=== PATIENT | female | born 1970 | race Caucasian/White ===

== ENCOUNTER 2017-07-11 16:22 | Inpatient (IN) | payer OTHER ==
[2017-07-11 16:22] VITALS: BMI 26.3
[2017-07-11] MEDS ORDERED: Sodium Chloride 0.9% 1,000 ML IV STA (17:02)
--- NOTE | 2017-07-11 17:02 | ED PDOC ---
HPI: General Adult Time Seen by Provider: 07/11/17 16:35 Chief Complaint (Nursing): Palpitations Chief Complaint (Provider): PALPITATIONS History Per: Patient History/Exam Limitations: no limitations Onset/Duration Of Symptoms: Days (Wednesday) Additional Complaint(s): Pt. with palpitations off and on since Wed. Today more constant so came to the ER. Has no chest pain, dyspnea, dizziness, weakness, leg pain, abd pain. No new food or drugs. No etoh. Has palpitations in the past and gets toprol. No dx for it. Cards: Dr. Russell; PCP: Dr. Rivera. Past Medical History Reviewed: Nursing Documentation, Vital Signs Vital Signs: Last Vital Signs Temp 98.2 F 07/11/17 16:24 Pulse 73 07/11/17 17:03 Resp 20 07/11/17 16:24 BP 165/89 H 07/11/17 16:50 Pulse Ox 100 07/11/17 17:51 - Medical History PMH: Asthma (sees Dr Rivera), CHF, HTN, Hypercholesterolemia Denies: Chronic Kidney Disease Other PMH: palpitations - Surgical History Other surgeries: heart surgery for genetic dz - Family History Family History: States: Unknown Family Hx - Living Arrangements Living Arrangements: With Family - Social History Current smoker - smoking cessation education provided: No Alcohol: None Drugs: Denies - Home Medications Home Medications: Ambulatory Orders Medication Instructions Recorded Lisinopril 20 mg PO DAILY 09/04/14 Metoprolol Succinate [Toprol XL] 100 mg PO DAILY 09/04/14 Simvastatin 20 mg PO DAILY 09/04/14 Cholecalciferol [Vitamin D] 1,000 iu PO 07/11/17 - Allergies Allergies/Adverse Reactions: Allergies Allergy/AdvReac Type Severity Reaction Status Date / Time No Known Allergies Allergy Verified 09/23/15 11:57 Review of Systems ROS Statement: Except As Marked, All Systems Reviewed And Found Negative Cardiovascular: Positive for: Palpitations Physical Exam - Reviewed Nursing Documentation Reviewed: Yes Vital Signs Reviewed: Yes - Physical Exam Appears: Positive for: Non-toxic, No Acute Distress Head Exam: Positive for: ATRAUMATIC, NORMAL INSPECTION, NORMOCEPHALIC Skin: Positive for: Normal Color, Warm, DRY Eye Exam: Positive for: EOMI, Normal appearance, PERRL ENT: Positive for: Normal ENT Inspection Neck: Positive for: Normal, Painless ROM Cardiovascular/Chest: Positive for: Tachycardia Respiratory: Positive for: CNT, Normal Breath Sounds Gastrointestinal/Abdominal: Positive for: Normal Exam, Bowel Sounds, Soft. Negative for: Tenderness Back: Positive for: Normal Inspection. Negative for: L CVA Tenderness, R CVA Tenderness Extremity: Positive for: Normal ROM. Negative for: Tenderness, Pedal Edema Neurologic/Psych: Positive for: Alert, Oriented. Negative for: Motor/Sensory Deficits - Laboratory Results Result Diagrams: 07/11/17 17:11 07/11/17 17:11 Interpretation Of Abn Labs: 38/1.3 - ECG ECG: Positive for: Interpreted By Me, Viewed By Me ECG Rhythm: Positive for: Atrial Flutter Interpretation Of ECG: post cardizem Rate controlled afib/flutter O2 Sat by Pulse Oximetry: 100 Pulse Ox Interpretation: Normal - Progress ED Course And Treament: 1759: Stable. Spoke with Dr. Rivera. Will admit. Spoke with Dr. Russell. Well known to him. Wants 40 sc lovenox for prophylaxis, 50mg metoprolol. No palpitations and feels better. - Critical Care Total Time (In Min): 30 Documented Critical Care: Time excludes all time spent performint seperately billable procedures Disposition - Clinical Impression Clinical Impression: Atrial fibrillation and flutter - Patient ED Disposition Is Patient to be Admitted: Yes Counseled Patient/Family Regarding: Studies Performed, Diagnosis - Disposition Disposition Time: 18:01 Condition: FAIR - Pt Status Changed To: Hospital Disposition Of: Observation - POA Present On Arrival: None
[2017-07-11 17:14] LABS: BASO # 0.1 K/uL (0.0-0.2); EOS # 0.2 K/uL (0.0-0.7); EOS % 1.9 % (0.0-4.0); LYMPH # 3.8 K/uL (1.0-4.3); LYMPH % 40.9 % (20.0-40.0); MEAN CELL VOLUME 92.3 fl (81.0-99.0); MEAN CORPUSCULAR HEMOGLOBIN 30.7 pg (27.0-31.0); MEAN CORPUSCULAR HGB CONC 33.3 g/dL (33.0-37.0); MONO # 0.8 K/uL (0.0-0.8); MONO % 8.4 % (0.0-10.0); NEUT # 4.5 K/uL (1.8-7.0); NEUT % 47.8 % (50.0-75.0); NRBC % 0.1 % (0.0-0.0); RBC 4.25 Mil/uL (3.80-5.20); RED CELL DISTRIBUTION WIDTH 12.7 % (11.5-14.5); WHITE BLOOD COUNT 9.3 K/uL (4.8-10.8)
[2017-07-11 17:39] LABS: INR 0.9 (0.9-1.2); PARTIAL THROMBOPLASTIN TIME 32.1 Seconds (25.6-37.1)
[2017-07-11 17:42] LABS: ALB/GLOB RATIO 1.2 (1.0-2.1); ALBUMIN 4.4 g/dL (3.5-5.0); ALT/SGPT 34 U/L (9-52); AST/SGOT 27 U/L (14-36); BLOOD UREA NITROGEN 38 mg/dl (7-17); GFR AFRICAN-AMERICAN 54; GFR NON-AFRICAN AMERICAN 44; MAGNESIUM 1.9 MG/DL (1.6-2.3)
[2017-07-11] MEDS ORDERED: Enoxaparin 60 mg Syringe SC STA (17:52)
[2017-07-11] MEDS ORDERED: Enoxaparin 40 mg Syringe SC STA (17:52)
[2017-07-12 07:17] LABS: BLOOD UREA NITROGEN 27 mg/dl (7-17); CALCIUM 9.5 mg/dL (8.4-10.2); GFR AFRICAN-AMERICAN > 60; GFR NON-AFRICAN AMERICAN > 60; HDL CHOLESTEROL 27 MG/DL (30-70)
[2017-07-12 07:26] LABS: LDL CHOLESTEROL 103 mg/dL (0-129)
[2017-07-12 07:32] LABS: T4 5.61 ug/dl (5.5-11.0)
[2017-07-12] MEDS: Cholecalciferol 1,000 INTLU TAB PO SCH (08:43)
[2017-07-12] MEDS: Enoxaparin 40 mg Syringe SC SCH (08:44)
[2017-07-12] MEDS ORDERED: Cholecalciferol 1,000 INTLU TAB PO SCH (09:00)
[2017-07-12] MEDS ORDERED: Metoprolol Succinate 50 mg XL Tab PO SCH ×2 (09:00)
[2017-07-12] MEDS ORDERED: Patient's Own Med (Simvastatin [Simvastatin] 20 MG) PO SCH (09:00)
[2017-07-12] MEDS ORDERED: Metoprolol 1 mg/ml Inj IVP ONE ×2 (09:27→12:40)
--- NOTE | 2017-07-12 09:39 | CP.PCM.CON ---
History of Present Illness - History of Present Illness History of Present Illness: This 46-year-old female came into the emergency room complaining of constant palpitations which had lasted a day and a half before she called me. Recommendations she came to the emergency room and was found to have atrial flutter. Initially her heart rate exceeded 140 bpm following intravenous Cardizem her heart rate was mostly between 60 and 80 bpm with clear evidence of atrial flutter with 4-1 AV conduction. The patient has a long medical history which consists of having required cardiac surgery at the age of 7 years for total anamalous pulmonary venous drainage. She is a long-standing hypertensive and diabetic who has had an insulin pump installed more than 3 years back. The patient was found to be hyperthyroid and has been taking Tapazole 5 mg daily for more than 2 years. According to her her last TSH level 6 months back was normal. She has never been a smoker and has never suffered a myocardial infarction or congestive cardiac failure. A nuclear stress test done in 2014 prior to undergoing a total hysterectomy did not show any evidence of coronary artery disease. The patient has complained of palpitations off and on which have usually responded to taking beta-blockade by mouth. Atrial flutter or fibrillation had never been documented before. The patient has not been on any oral anticoagulation. Physical examination shows an anxious female who was able to lie virtually flat and carry on a conversation without any difficulty. Her heart rate was 130 bpm with persistent atrial flutter with 3 to one conduction. Her blood pressure was 114/70 mmHg. Her jugular venous pressure was not elevated and there was no edema over lower extremities. The pedal pulses are well felt. There were no carotid bruits. A scar of sternotomy was evident on the chest. The first and second heart sounds are normal. There was no murmur or gallop. There were no rales. Her electro-cardiogram again showed atrial flutter with 4-1 conduction and a pattern suggestive of right ventricular preponderance. Her lab data showed a normal thyroid profile and her BUN and creatinine as well as electrolytes were normal. Her CBC was noted. 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 The patient will receive intravenous beta-blockade to control her heart rate followed by oral beta blockade. Given the fact that she is a hypertensive as well as diabetic and a female she will require long-term oral anticoagulation. I will discuss possible ablation procedure to avoid long-term oral anticoagulation. Past Patient History - Past Medical History & Family History Past Medical History?: Yes - Past Social History Alcohol: None Drugs: Denies - CARDIAC Hx Congestive Heart Failure: Yes Hx Hypercholesterolemia: Yes Hx Hypertension: Yes - PULMONARY Hx Asthma: Yes (sees Dr Rivera) - NEUROLOGICAL Hx Neurological Disorder: No - HEENT Hx HEENT Problems: No - RENAL Hx Chronic Kidney Disease: No - ENDOCRINE/METABOLIC Hx Endocrine Disorders: Yes Hx Diabetes Mellitus Type 1: Yes (DM since chil, on insulin pump) - HEMATOLOGICAL/ONCOLOGICAL Hx Blood Disorders: Yes Hx Blood Transfusions: Yes (Had BT secondary to bleeding) Hx Blood Transfusion Reaction: No - INTEGUMENTARY Hx Dermatological Problems: No - MUSCULOSKELETAL/RHEUMATOLOGICAL Hx Musculoskeletal Disorders: No - GASTROINTESTINAL Hx Gastrointestinal Disorders: No - GENITOURINARY/GYNECOLOGICAL Hx Genitourinary Disorders: No - PSYCHIATRIC Hx Emotional Abuse: No Hx Physical Abuse: No Hx Substance Use: No - SURGICAL HISTORY Hx Surgeries: Yes (heart surgery and D/C) Hx Cardiac Catheterization: Yes (age 17) Hx Dilation and Curettage: Yes (2013) 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) Other/Comment: Right hand trigger finger 2010 - ANESTHESIA Hx Anesthesia: Yes Hx Anesthesia Reactions: No Hx Malignant Hyperthermia: No Meds Allergies/Adverse Reactions: Allergies Allergy/AdvReac Type Severity Reaction Status Date / Time No Known Allergies Allergy Verified 09/23/15 11:57 - Medications Medications: Current Medications Aspirin (Aspirin Chewable) 81 mg PO DAILY [facility] Last Admin: 07/12/17 08:41 Dose: 81 mg Atorvastatin Calcium (Lipitor) 10 mg PO DAILY [facility] Last Admin: 07/12/17 08:41 Dose: 10 mg Cholecalciferol (Vitamin D) 1,000 intlu PO DAILY [facility] Last Admin: 07/12/17 08:43 Dose: 1,000 intlu Cholecalciferol (Vitamin D) 1,000 intlu PO DAILY [facility] Enoxaparin Sodium (Lovenox) 40 mg SC DAILY [facility] PRN Reason: Protocol Last Admin: 07/12/17 08:44 Dose: 40 mg Metoprolol Tartrate (Lopressor) 2 mg IVP ONCE ONE Stop: 02/05/18 09:28 Metoprolol Tartrate (Lopressor) 100 mg PO Q12 [facility]THA Results - Vital Signs Recent Vital Signs: Last Vital Signs Temp 98.3 F 07/11/17 19:56 Pulse 129 H 07/12/17 08:42 Resp 20 07/11/17 20:36 BP 119/60 07/12/17 08:42 Pulse Ox 96 07/12/17 04:57 - Labs Result Diagrams: 07/11/17 17:11 07/12/17 04:00 Labs: Laboratory Results - last 24 hr 07/11/17 07/11/17 07/11/17 17:11 17:11 17:11 WBC 9.3 RBC 4.25 Hgb 13.0 Hct 39.2 MCV 92.3 D MCH 30.7 MCHC 33.3 RDW 12.7 Plt Count 237 MPV 10.0 Neut % (Auto) 47.8 L Lymph % (Auto) 40.9 H [place] % (Auto) 8.4 Eos % (Auto) 1.9 Baso % (Auto) 1.0 Neut # (Auto) 4.5 Lymph # (Auto) 3.8 [place] # (Auto) 0.8 Eos # (Auto) 0.2 Baso # (Auto) 0.1 PT 10.0 INR 0.9 APTT 32.1 Sodium 141 Potassium 4.3 Chloride 100 Carbon Dioxide 28 Anion Gap 17 BUN 38 H Creatinine 1.3 H Est GFR ( Amer) 54 Est GFR (Non-Af Amer) 44 Random Glucose 174 H Calcium 10.0 Phosphorus 4.1 Magnesium 1.9 Total Bilirubin 0.4 AST 27 ALT 34 Alkaline Phosphatase 91 Troponin I < 0.0120 Total Protein 8.2 Albumin 4.4 Globulin 3.8 Albumin/Globulin Ratio 1.2 Triglycerides Cholesterol LDL Cholesterol Direct HDL Cholesterol Thyroxine (T4) TSH 3rd Generation 07/12/17 04:00 WBC RBC Hgb Hct MCV MCH MCHC RDW Plt Count MPV Neut % (Auto) Lymph % (Auto) [place] % (Auto) Eos % (Auto) Baso % (Auto) Neut # (Auto) Lymph # (Auto) [place] # (Auto) Eos # (Auto) Baso # (Auto) PT INR APTT Sodium 141 Potassium 4.1 Chloride 105 Carbon Dioxide 27 Anion Gap 13 BUN 27 H Creatinine 0.8 Est GFR ( Amer) > 60 Est GFR (Non-Af Amer) > 60 Random Glucose 126 H Calcium 9.5 Phosphorus Magnesium Total Bilirubin AST ALT Alkaline Phosphatase Troponin I Total Protein Albumin Globulin Albumin/Globulin Ratio Triglycerides 456 H D Cholesterol 196 LDL Cholesterol Direct 103 HDL Cholesterol 27 L Thyroxine (T4) 5.61 TSH 3rd Generation 3.32
[2017-07-12 09:41] LABS: BASO # 0.1 K/uL (0.0-0.2); BASO % 0.7 % (0.0-2.0); EOS # 0.2 K/uL (0.0-0.7); EOS % 2.4 % (0.0-4.0); HEMOGLOBIN 12.2 g/dL (12.0-16.0); LYMPH # 3.1 K/uL (1.0-4.3); LYMPH % 40.8 % (20.0-40.0); MEAN CELL VOLUME 91.6 fl (81.0-99.0); MEAN CORPUSCULAR HEMOGLOBIN 30.8 pg (27.0-31.0); MEAN CORPUSCULAR HGB CONC 33.6 g/dL (33.0-37.0); MEAN PLATELET VOLUME 10.1 fl (7.2-11.7); MONO # 0.6 K/uL (0.0-0.8); MONO % 7.8 % (0.0-10.0); NEUT # 3.6 K/uL (1.8-7.0); NEUT % 48.3 % (50.0-75.0); NRBC % 0.1 % (0.0-0.0); RBC 3.96 Mil/uL (3.80-5.20); RED CELL DISTRIBUTION WIDTH 12.8 % (11.5-14.5); WHITE BLOOD COUNT 7.5 K/uL (4.8-10.8)
--- NOTE | 2017-07-12 10:47 | RAD ---
PROCEDURE: CHEST RADIOGRAPH, 1 VIEW HISTORY: CHEST PAIN COMPARISON: None available. FINDINGS: LUNGS: Mild bibasilar atelectasis left greater than right. PLEURA: No pneumothorax or pleural fluid seen. CARDIOVASCULAR: Re- demonstrated are sternotomy wires. Heart size is upper limits of normal. OSSEOUS STRUCTURES: No significant abnormalities. VISUALIZED UPPER ABDOMEN: Normal. OTHER FINDINGS: None. IMPRESSION: Mild bibasilar atelectasis left greater than right.
--- NOTE | 2017-07-12 11:21 | HP ---
HISTORY OF PRESENT ILLNESS: Ms. Manrique is a 46-year-old female who was admitted via the Emergency Room because of palpitations for 3 days prior to presentation. She denies chest pain, dizziness or shortness of breath. She indicated that palpitations has started on . She, therefore, came to the Emergency Room for evaluation and was found to have atrial flutter/fibrillation and was given IV Cardizem, persisted, but rate dropped to about 90 per minute but then went to back to 140. She received another dose of IV Cardizem and heart rate dropped again to 90s, but I saw this morning it is back to 140. PAST MEDICAL HISTORY: She has past medical history of hypertension, hyperthyroidism, hyperlipidemia, diabetes mellitus, glaucoma status post eye surgery and status post childhood cardiac surgery. FAMILY HISTORY: Non-revealing. SOCIAL HISTORY: She does not smoke or drink and does not use drugs. 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 PHYSICAL EXAMINATION: GENERAL: The patient is alert and oriented, appears to be still having palpitations. VITAL SIGNS: Remarkable for blood pressure of 119/60 with pulse of 129 to 140 per minute, O2 sat 96% on room air, and respiratory rate of 18 per minute. SKIN: Shows fair turgor. HEENT: Pupils equal and reactive to light and accommodation. Scars of prior surgery noted on the right eye. JVP flat. Mouth shows fair hygiene. LUNGS: Clear. HEART: Tachycardiac. Scar of prior surgery noted on the anterior chest wall. BREASTS: Normal. ABDOMEN: Soft and nontender. No organomegaly. EXTREMITIES: Shows no edema or cyanosis. CENTRAL NERVOUS SYSTEM: Grossly intact. LABORATORY DATA: Revealed EKG is remarkable for atrial flutter with 4:[address] conduction[address] Non-specific ST-T abnormalities. Chest x-ray is pending. IMPRESSION: Cardiac arrhythmias, history of childhood cardiac surgery, hyperthyroidism, diabetes mellitus type 2, hyperlipidemia, glaucoma, and asthma by history. PLAN: Continue antiarrhythmic therapy, cardiac evaluation. Obtain echocardiogram, serial troponin. Continue therapy as ordered. Further therapy will depend on Cardiology. Blas Rivera MD [facility] # [id number] MTDD
--- NOTE | 2017-07-12 12:23 | CARD ---
APPROVED REPORT EKG Measurement Heart [id number] <Conclusion> Atrial flutter with 4:[address] abnormality Abnormal ECG
--- NOTE | 2017-07-12 12:24 | CARD ---
APPROVED REPORT EKG Measurement Heart [id number] <Conclusion> Atrial flutter with 2:[address] and T wave abnormality Abnormal ECG
[2017-07-13] MEDS: Enoxaparin 40 mg Syringe SC SCH (08:45)
[2017-07-13] MEDS: Cholecalciferol 1,000 INTLU TAB PO SCH (08:46)
--- NOTE | 2017-07-13 08:46 | CARD ---
APPROVED REPORT EKG Measurement Heart [id number] <Conclusion> Atrial flutter with variable AV block Nonspecific T wave abnormality Abnormal ECG
[2017-07-13 08:47] VITALS: RESP 18
--- NOTE | 2017-07-13 09:53 | CP.PCM.DIS ---
Provider - Provider Date of Admission: 07/12/17 18:01 Attending physician: Blas Boswell MD Time Spent in preparation of Discharge (in minutes): 35 Diagnosis - Discharge Diagnosis (1) Hyperthyroidism Status: Acute (2) Mixed hyperlipidemia Status: Acute (3) Atrial fibrillation and flutter Status: Acute (4) Diabetes Status: Chronic (5) Heart disease Status: Chronic Hospital Course - Lab Results Lab Results: Most Recent Lab Values WBC 7.5 K/uL (4.8-10.8) 07/12/17 09:30 RBC 3.96 Mil/uL (3.80-5.20) 07/12/17 09:30 Hgb 12.2 g/dL (12.0-16.0) 07/12/17 09:30 Hct 36.3 % (34.0-47.0) 07/12/17 09:30 MCV 91.6 fl (81.0-99.0) 07/12/17 09:30 MCH 30.8 pg (27.0-31.0) 07/12/17 09:30 MCHC 33.6 g/dL (33.0-37.0) 07/12/17 09:30 RDW 12.8 % (11.5-14.5) 07/12/17 09:30 Plt Count 209 K/uL (130-400) 07/12/17 09:30 MPV 10.1 fl (7.2-11.7) 07/12/17 09:30 Neut % (Auto) 48.3 % (50.0-75.0) L 07/12/17 09:30 Lymph % (Auto) 40.8 % (20.0-40.0) H 07/12/17 09:30 [place] % (Auto) 7.8 % (0.0-10.0) 07/12/17 09:30 Eos % (Auto) 2.4 % (0.0-4.0) 07/12/17 09:30 Baso % (Auto) 0.7 % (0.0-2.0) 07/12/17 09:30 Neut # (Auto) 3.6 K/uL (1.8-7.0) 07/12/17 09:30 Lymph # (Auto) 3.1 K/uL (1.0-4.3) 07/12/17 09:30 [place] # (Auto) 0.6 K/uL (0.0-0.8) 07/12/17 09:30 Eos # (Auto) 0.2 K/uL (0.0-0.7) 07/12/17 09:30 Baso # (Auto) 0.1 K/uL (0.0-0.2) 07/12/17 09:30 PT 10.0 Seconds (9.8-13.1) 07/11/17 17:11 INR 0.9 (0.9-1.2) 07/11/17 17:11 APTT 32.1 Seconds (25.6-37.1) 07/11/17 17:11 Sodium 141 mmol/l (132-148) 07/12/17 04:00 Potassium 4.1 MMOL/L (3.6-5.0) 07/12/17 04:00 Chloride 105 mmol/L (98-107) 07/12/17 04:00 Carbon Dioxide 27 mmol/L (22-30) 07/12/17 04:00 Anion Gap 13 (10-20) 07/12/17 04:00 BUN 27 mg/dl (7-17) H 07/12/17 04:00 Creatinine 0.8 mg/dl (0.7-1.2) 07/12/17 04:00 Est GFR ( Amer) > 60 07/12/17 04:00 Est GFR (Non-Af Amer) > 60 07/12/17 04:00 Random Glucose 126 mg/dL (65-105) H 07/12/17 04:00 Calcium 9.5 mg/dL (8.4-10.2) 07/12/17 04:00 Phosphorus 4.1 mg/dl (2.5-4.5) 07/11/17 17:11 Magnesium 1.9 MG/DL (1.6-2.3) 07/11/17 17:11 Total Bilirubin 0.4 mg/dl (0.2-1.3) 07/11/17 17:11 AST 27 U/L (14-36) 07/11/17 17:11 ALT 34 U/L (9-52) 07/11/17 17:11 Alkaline Phosphatase 91 U/L (38-126) 07/11/17 17:11 Troponin I < 0.0120 ng/mL (0.00-0.120) 07/12/17 08:55 Total Protein 8.2 G/DL (6.3-8.2) 07/11/17 17:11 Albumin 4.4 g/dL (3.5-5.0) 07/11/17 17:11 Globulin 3.8 gm/dL (2.2-3.9) 07/11/17 17:11 Albumin/Globulin Ratio 1.2 (1.0-2.1) 07/11/17 17:11 Triglycerides 456 mg/DL (0-149) H D 07/12/17 04:00 Cholesterol 196 mg/dL (0-199) 07/12/17 04:00 LDL Cholesterol Direct 103 mg/dL (0-129) 07/12/17 04:00 HDL Cholesterol 27 MG/DL (30-70) L 07/12/17 04:00 Thyroxine (T4) 5.61 ug/dl (5.5-11.0) 07/12/17 04:00 TSH 3rd Generation 3.32 mIU/ML (0.46-4.68) 07/12/17 04:00 - Hospital Course Hospital Course: feels better no recurrence of palpitations [id number]/min Discharge Exam - Head Exam Head Exam: ATRAUMATIC, NORMAL INSPECTION, NORMOCEPHALIC - Eye Exam Eye Exam: EOMI, Normal appearance, PERRL Pupil Exam: NORMAL ACCOMODATION, PERRL - GI/Abdominal Exam GI & Abdominal Exam: Normal Bowel Sounds - Rectal Exam Rectal Exam: NORMAL INSPECTION - Neurological Exam Neurological exam: Alert, CN II-XII Intact, Normal Gait, Oriented x3, Reflexes Normal - Psychiatric Exam Psychiatric exam: Normal Affect, Normal Mood - Skin Skin Exam: Dry, Intact, Normal Color, Warm Discharge Plan - Follow Up Plan Condition: FAIR Disposition: HOME/ ROUTINE Patient education suggested?: Yes Additional Instructions: discharge on lopressor 100 mg bid and eliquis 15 mg bid follow up with caitie boswell and rogerio case discussed with repair specialist--dr mitchellomeres
[2017-07-13] MEDS ORDERED: methIMAzole 5 MG TAB PO SCH (10:00)
[2017-07-13 16:11] VITALS: BP 108/64; PULSE 79; TEMP 97.7; O2SAT 97
== END 2017-07-13 16:15 | disposition home or self-care (01) | DRG 310 ==
LOC: H.ER 16:22 → H.ERHOLD 18:01 → H.TEL 07-12 17:46 → OBSVTOIN 07-12 18:01
PROVIDERS: ADMIT Internal Medicine Pulmonary Disease; ATTEND Internal Medicine Pulmonary Disease
DX: I48.1 Persistent atrial fibrillation (principal); E05.90 Thyrotoxicosis, unspecified without thyrotoxic crisis or storm; E78.2 Mixed hyperlipidemia; I48.92 Unspecified atrial flutter; I10 Essential (primary) hypertension; E10.9 Type 1 diabetes mellitus without complications; J45.909 Unspecified asthma, uncomplicated; Z96.41 Presence of insulin pump (external) (internal); Z79.4 Long term (current) use of insulin

== ENCOUNTER 2018-10-20 15:23 | Emergency (ER) | payer OTHER ==
[2018-10-20 15:23] VITALS: BMI 26.3
[2018-10-20 16:14] VITALS: TEMP 98.4
--- NOTE | 2018-10-20 16:35 | ED PDOC ---
Lower Extremity Pain/Injury Time Seen by Provider: 10/20/18 16:16 Chief Complaint (Nursing): Lower Extremity Problem/Injury Chief Complaint (Provider): Lower Extremity Problem/Injury History Per: Patient History/Exam Limitations: no limitations Onset/Duration Of Symptoms: Hrs (since earlier this morning) Current Symptoms Are (Timing): Still Present Additional Complaint(s): 48 y/o female with a PMHx of Type 1 DM presents to the ED for evaluation of atraumatic left ankle pain. 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 Patient reports symptoms started this morning and are unrelieved after taking Motrin 600 mg. Patient notes of last taking Motrin at 10:15AM this morning. Patient states she is unable to twist her left ankle inward or outward secondary to pain. Patient notes symptoms worsen with standing. Patient reports pain is non-radiating and confined to the ankle. Otherwise: (-) recent falls, (-) previous ankle injury or surgery, (-) loss of sensation, (-) calf tenderness, (- ) shortness of breath/cough, (-) recent fever and any other complaints. PMD: Blas Fajardo I Past Medical History Reviewed: Historical Data, Nursing Documentation, Vital Signs Vital Signs: Last Vital Signs Temp 98.4 F 10/20/18 16:14 Pulse 79 10/20/18 16:14 Resp 16 10/20/18 16:14 BP 119/57 L 10/20/18 16:14 Pulse Ox 97 10/20/18 16:14 Primary Care Provider: Blas Rivera I - Medical History PMH: Asthma (sees Dr Rivera), CHF, Diabetes (Type I), HTN, Hypercholesterolemia - Surgical History Other surgeries: Open Heart Surgery, Hysterectomy and multiple eye procedures - Family History Family History: States: Unknown Family Hx - Social History Current smoker - smoking cessation education provided: No Drugs: Denies - Home Medications Home Medications: Ambulatory Orders Medication Instructions Recorded Cholecalciferol [Vitamin D 1000 IU] 1,000 iu PO DAILY 07/11/17 Apixaban [Eliquis] 2.5 mg PO BID #60 tablet 07/13/17 Aspirin [Aspirin Chewable] 81 mg PO DAILY #30 chew 07/13/17 Atorvastatin [Lipitor] 10 mg PO DAILY #30 tab 07/13/17 Metoprolol Tartrate [Lopressor] 100 mg PO Q12 #60 tab 07/13/17 methIMAzole [Tapazole] 5 mg PO DAILY tab 07/13/17 Acetaminophen [Acetaminophen 8 650 mg PO Q8 PRN #21 tablet.er 10/20/18 Hour] Meloxicam [Mobic] 15 mg PO DAILY PRN #14 tab 10/20/18 - Allergies Allergies/Adverse Reactions: Allergies Allergy/AdvReac Type Severity Reaction Status Date / Time No Known Allergies Allergy Verified 10/20/18 16:15 Review of Systems ROS Statement: Except As Marked, All Systems Reviewed And Found Negative Constitutional: Negative for: Fever Respiratory: Negative for: Shortness of Breath Musculoskeletal: Positive for: Foot Pain (left- ankle). Negative for: Leg Pain (calf tenderness) Neurological: Negative for: Other (loss of senstaion) Physical Exam - Reviewed Nursing Documentation Reviewed: Yes Vital Signs Reviewed: Yes - Physical Exam Comments: GENERAL APPEARANCE: Patient is awake, alert, oriented x 3, in no acute distress but limping in the ED. SKIN: Warm, dry; (-) cyanosis. NECK: Supple, FROM ENT: Mucus membranes moist. Airway patent, (-) stridor. LOWER EXTREMITY: Left Ankle: (+) Decreased ROM most notably on internal and external rotation. (+) tenderness to the left lateral malleolous. (-) pedal edema, (-) erythema, (-) ecchymosis, (-) skin break. Achilles tendon intact and nontender. Rest of lower extremity: (-) tenderness with full ROM. (-) calf tenderness. Sensation and capillary refill intact. CHEST AND RESPIRATORY: (-) wheezing; (-) rales, (-) rhonchi; breath sounds equal bilaterally. Respirations even and nonlabored. HEART AND CARDIOVASCULAR: (-) irregularity NEUROLOGIC: (+) distal sensation. - ECG O2 Sat by Pulse Oximetry: 97 (RA) Pulse Ox Interpretation: Normal Medical Decision Making Medical Decision Making: Time: 1630 Impression: acute ankle pain Plan: -- Motrin 600 mg PO -- Ankle Left 3 Views XR -- Re-evaluation Time: 1755 -- XR reviewed and read by me demonstrates no acute disease. LIZZY wrap ordered and applied by ED staff. Patient is neurovascularly intact after placement. Patient provided with crutches and instructed on walking by ED staff. Weight bearing as tolerated. RICE encouraged. PROCEDURE: Left Ankle Radiographs. Three views. HISTORY: joint pain COMPARISON: None available. FINDINGS: BONES: No acute displaced fracture. JOINTS: No dislocation. SOFT TISSUES: Unremarkable. No evidence of radiopaque foreign body. OTHER FINDINGS: None. IMPRESSION: No acute displaced fracture, dislocation, or significant joint effusion identified. If symptoms persist or if there is clinical concern, x-ray follow-up in 7-10 days should be considered. On re-evaluation, patient reports improvement of symptoms. On exam, patient remains AAOx3, in no acute distress. VSS, stable for discharge. Lab/Diagnostic results d/w the patient in great detail. Diagnosis of acute ankle pain/sprain d/w the patient. Based on history, exam and diagnostic results, plan will be for outpatient follow up with podiatry. Patient instructed to follow-up with pmd / referral provided / the clinic in 1- 2 days without fail. Advised to take medication as prescribed. Return to the emergency room at any time for any new or worsening symptoms. Patient states she fully agrees with and understands discharge instructions. States that she agrees with the plan and disposition. Verbalized and repeated discharge instructions and plan. I have given the patient opportunity to ask any additional questions. __ Scribe Attestation: Documented by Tomasz Cherry, acting as a scribe Rosa Maria Vazquez PA-C. Provider Scribe Attestation: All medical record entries made by the Scribe were at my direction and personally dictated by me. I have reviewed the chart and agree that the record accurately reflects my personal performance of the history, physical exam, medical decision making, and the department course for this patient. I have also personally directed, reviewed, and agree with the discharge instructions and disposition. Disposition - Clinical Impression Clinical Impression: Ankle pain, Ankle sprain - Patient ED Disposition Is Patient to be Admitted: No Counseled Patient/Family Regarding: Studies Performed, Diagnosis, Need For Followup, Rx Given - Disposition Referrals: Podiatry Clinic [Outside] Blas Rivera MD [Family Provider] - Radha Cruz DPM [Staff Provider] - Disposition: Routine/Home Disposition Time: 18:00 Condition: STABLE Additional Instructions: The emergency medical care you received today was directed at your acute symptom s. If you were prescribed any medication, please fill it and take as directed. It may take several days for your symptoms to resolve. Return to the Emergency Department if your symptoms worsen, do not improve, or if you have any other problems. Please contact your doctor in 2 days for re-evaluation and follow up / or call one of the physicians/clinics you have been referred to that are listed on the Patient Visit Information form that is included in your discharge packet. Bring any paperwork you were given at discharge with you along with any medications you are taking to your follow up visit. Our treatment cannot replace ongoing medical care by a primary care provider (PCP) outside of the emergency department. Prescriptions: Acetaminophen [Acetaminophen 8 Hour] 650 mg PO Q8 PRN #21 tablet.er PRN Reason: Pain, Moderate (4-7) Meloxicam [Mobic] 15 mg PO DAILY PRN #14 tab PRN Reason: Pain, Moderate (4-7) Instructions: Ankle Sprain (DC), How to Use Crutches, Active Range of Motion Exercises, Knees and Ankles, Ankle Strengthening Exercises, How to Use an Elastic Bandage Forms: [place] (French) Print Language: CHILEAN - POA Present On Arrival: None
--- NOTE | 2018-10-20 18:38 | RAD ---
PROCEDURE: Left Ankle Radiographs. Three views. HISTORY: joint pain COMPARISON: None available. FINDINGS: BONES: No acute displaced fracture. JOINTS: No dislocation. SOFT TISSUES: Unremarkable. No evidence of radiopaque foreign body. OTHER FINDINGS: None. IMPRESSION: No acute displaced fracture, dislocation, or significant joint effusion identified. If symptoms persist or if there is clinical concern, x-ray follow-up in 7-10 days should be considered.
[2018-10-20 18:59] VITALS: BP 130/70; PULSE 78; RESP 18
[2018-10-20 23:22] VITALS: O2SAT 97
== END 2018-10-20 18:59 | disposition home or self-care (01) ==
LOC: H.ER 15:23
DX: S93.402A Sprain of unspecified ligament of left ankle, initial encounter (principal); X58.XXXA Exposure to other specified factors, initial encounter; Y92.89 Other specified places as the place of occurrence of the external cause